=== PATIENT | female | born 1955 | race Caucasian/White ===

== ENCOUNTER 2020-06-10 05:00 | Day surgery (SDC) | payer OTHER ==
[~2020-06-10] VITALS: Ht 162.6 cm; Wt 54.5 kg
[~2020-06-10 05:00] MED LIST: CYCLOPENTOLATE HCL 1% 2 ML OPHTHALMIC SOLUTION ONE; OFLOXACIN 0.3% 5 ML OPHTHALMIC SOLUTION ONE; PHENYLEPHRINE HCL 2.5% 2 ML OPHTHALMIC SOLUTION ONE; RINGERS SOLUTION,LACTATED 500 ML IV ONE; TETRACAINE HCL/PF 0.5% 4 ML OPHTHALMIC SOLUTION ONE; TROPICAMIDE 1% 2 ML OPHTHALMIC SOLUTION ONE
[2020-06-10] MEDS ORDERED: PrednisoLONE ACETATE 1% 5 ML OPHTHALMIC SUSPENSION OS ONE (05:01)
[2020-06-10] MEDS ORDERED: HYALURONATE SOD/CHONDROITIN SOD 0.5 ML VIAL IO ONE (05:01)
[2020-06-10] MEDS ORDERED: HYALURONATE SODIUM 12 MG/ML 0.8 ML SYRINGE IO ONE (05:01)
[2020-06-10] MEDS: PHENYLEPHRINE HCL 2.5% 2 ML OPHTHALMIC SOLUTION OS SCH ×3 (05:32→05:46)
[2020-06-10] MEDS: CYCLOPENTOLATE HCL 1% 2 ML OPHTHALMIC SOLUTION OS SCH ×3 (05:32→05:45)
[2020-06-10] MEDS: TROPICAMIDE 1% 2 ML OPHTHALMIC SOLUTION OS SCH ×3 (05:32→05:46)
[2020-06-10] MEDS: OFLOXACIN 0.3% 5 ML OPHTHALMIC SOLUTION OS SCH ×3 (05:32→05:45)
[2020-06-10] MEDS ORDERED: EPINEPHrine 1:1,000 [1 MG/ML] AMP ONE (05:43)
[2020-06-10] MEDS ORDERED: POVIDONE-IODINE 10% 15 ML SOLUTION UD ONE (05:43)
[2020-06-10] MEDS ORDERED: LIDOCAINE/PF 1% 2 ML VIAL ONE (05:43)
[2020-06-10] MEDS ORDERED: NEOMYCIN/POLYMYXIN B/DEXAMETH 3.5 GM OPHTHALMIC OINTMENT ONE (05:43)
[2020-06-10] MEDS ORDERED: ACETAMINOPHEN 325 MG TABLET PO PRN (06:00)
[2020-06-10] MEDS ORDERED: TETRACAINE HCL/PF 0.5% 4 ML OPHTHALMIC SOLUTION OS ONE (06:00)
[2020-06-10] MEDS ORDERED: ALPRAZolam 0.5 MG TABLET PO ONE (06:00)
[2020-06-10] MEDS ORDERED: RINGERS SOLUTION,LACTATED 500 ML IV ONE (06:00)
[2020-06-10] MEDS ORDERED: PrednisoLONE ACETATE 1% 5 ML OPHTHALMIC SUSPENSION ONE (06:15)
[2020-06-10] MEDS: FLURBIPROFEN SODIUM 0.03% 2.5 ML OPHTHALMIC SOLUTION OS SCH ×3 (06:31→06:42)
[2020-06-10] MEDS ORDERED: MIDAZOLAM HCL 2 MG/2 ML VIAL IVP ONE (12:00)
[2020-06-10] MEDS ORDERED: FentaNYL CITRATE-PF 100 MCG/2 ML VIAL IVP ONE (12:00)
== END 2020-06-10 08:30 | disposition home or self-care (01) ==
LOC: SURGERY 05:00
PROVIDERS: ATTEND Ophthalmology
DX: H26.20 Unspecified complicated cataract (principal); F17.210 Nicotine dependence, cigarettes, uncomplicated; Z11.59 Encounter for screening for other viral diseases; Z79.899 Other long term (current) drug therapy; Z98.890 Other specified postprocedural states; Z88.8 Allergy status to other drugs, medicaments and biological substances
CPT/HCPCS: 66982; 87635; 93005; J0171; J2250; J3010; J3490 ×2; J7120; V2632